=== PATIENT | female | born 1965 | race Caucasian/White ===

== ENCOUNTER 2020-01-08 11:58 | Inpatient (IN) ==
[2020-01-08] MEDS ORDERED: SODIUM CHLORIDE 0.9% 1,000 ML IV STA (13:08)
[2020-01-08] MEDS ORDERED: DEXAMETHASONE 4 MG/1 ML VIAL IV STA (13:54)
[2020-01-08] MEDS ORDERED: FAMOTIDINE 20 MG/2 ML VIAL IV STA (13:58)
[2020-01-08] MEDS ORDERED: CETIRIZINE 10 MG TABLET PO STA (13:59)
[2020-01-08 14:01] LABS: Basophils % 0.3 % (0.0-0.8); Eosinophils % 0.1 % (0.00-10.9); Hemoglobin 12.7 GM/DL (12.0-16.0); Immature Granulocytes % 1.1 %; Immature Granulocytes Absolute 0.08 #; Lymphocytes % 14.7 % (21.3-54.2); Mean Corpuscular HGB Conc 34.3 GM/DL (32-36); Mean Corpuscular Volume 90.7 FL (87-102); Mean Platelet Volume 10.1 FL (9.6-12.0); Neutrophils % 79.8 % (38.7-73.9); Platelet Count 249 T/CUMM (130-400); Red Blood Count 4.08 MC/CUMM (3.8-5.5); Red Cell Distribution Width 14.1 % (9.3-17.3)
[2020-01-08 14:26] LABS: Albumin 2.8 G/DL (3.4-5.0); Bilirubin,Total 0.5 MG/DL (0.2-1.0); Ferritin 464.1 ng/ml (8-252); Total Protein 6.8 G/DL (6.4-8.3)
[2020-01-08] MEDS ORDERED: POTASSIUM CHLORIDE 20 MEQ TABLET PO STA (15:00)
[2020-01-08] MEDS ORDERED: PIPERACILLIN/TAZOBACTAM 3,375 MG in SODIUM CHLORIDE 0.9% 100 ML IV STA (15:03)
[2020-01-08] MEDS ORDERED: DEXTROSE 50% 25 GM/50 ML VIAL IV PRN ×2 (15:14)
[2020-01-08] MEDS ORDERED: ONDANSETRON 4 MG/2 ML VIAL IV STA (15:14)
[2020-01-08] MEDS ORDERED: GLUCAGON 1 MG VIAL IM PRN ×2 (15:14)
[2020-01-08] MEDS ORDERED: AZITHROMYCIN 500 MG PO SCH (15:30)
[2020-01-08 15:50] LABS: Band Neutrophils 1 % (0-10); Hypochromasia 2+; Lymphocytes 14 % (20-55); Platelet Estimate Decreased; Reactive Lymphocytes 1+; Segmented Neutrophils 82 % (50-85); Total Cells Counted 100
[2020-01-08 15:51] LABS: Anisocytosis 1+; Polychromasia 1+
[2020-01-08] MEDS ORDERED: INSULIN LISPRO 100 UNIT/ML SUBCUT SCH (16:30)
[2020-01-08] MEDS ORDERED: ALBUTEROL 2.5 MG/3 ML NEB RESP TX PRN (17:04)
[2020-01-08] MEDS ORDERED: ALBUTEROL SULFATE INH PRN (17:04)
[2020-01-08] MEDS: CHOLECALCIFEROL 5,000 UNIT TABLET PO SCH (18:43)
[2020-01-08] MEDS: ZINC GLUCONATE 50 MG TABLET PO SCH (18:43)
[2020-01-08] MEDS: ALBUTEROL INHALER 18 GM INH SCH ×2 (19:00→23:59)
[2020-01-08] MEDS ORDERED: POTASSIUM CHLORIDE 20 MEQ TABLET PO ONE (20:00)
[2020-01-08] MEDS: ONDANSETRON 4 MG/2 ML VIAL IV PRN (20:30)
[2020-01-08] MEDS: FAMOTIDINE 20 MG/2 ML VIAL IV SCH (20:33)
[2020-01-08] MEDS: clonazePAM 0.5 MG TABLET PO SCH (20:37)
[2020-01-08] MEDS: GABAPENTIN 300 MG CAPSULE PO SCH (20:37)
[2020-01-08] MEDS: NON-FORMULARY MEDICATION (Dextroamphetamine-Amphetamine 30 MG) PO SCH (20:37)
[2020-01-08] MEDS: ENOXAPARIN 40 MG/0.4 ML SYRINGE SUBCUT SCH (20:38)
[2020-01-08] MEDS ORDERED: CLORAZEPATE DIPOTASSIUM 15 MG PO SCH (21:00)
[2020-01-09 03:07] LABS: Basophils % 0.2 % (0.0-0.8); Hemoglobin 11.8 GM/DL (12.0-16.0); Immature Granulocytes % 1.1 %; Immature Granulocytes Absolute 0.05 #; Lymphocytes % 20.8 % (21.3-54.2); Mean Corpuscular HGB Conc 34.7 GM/DL (32-36); Mean Corpuscular Volume 90.4 FL (87-102); Mean Platelet Volume 10.2 FL (9.6-12.0); Monocytes % 6.1 % (1.7-12.7); Neutrophils % 71.8 % (38.7-73.9); Platelet Count 242 T/CUMM (130-400); Red Blood Count 3.76 MC/CUMM (3.8-5.5); Red Cell Distribution Width 14.2 % (9.3-17.3); White Blood Count 4.8 T/CUMM (4-12)
[2020-01-09 03:28] LABS: Albumin 2.5 G/DL (3.4-5.0); Bilirubin,Total 0.4 MG/DL (0.2-1.0); Calcium 7.2 MG/DL (8.5-10.1); Osmolality,Calculated 276.7 MOS/KG (273-304); Total Protein 6.3 G/DL (6.4-8.3)
[2020-01-09 04:22] LABS: Anisocytosis 1+; Platelet Estimate Normal
[2020-01-09] MEDS: ALBUTEROL INHALER 18 GM INH SCH ×3 (06:33→20:44)
[2020-01-09] MEDS: ONDANSETRON 4 MG/2 ML VIAL IV PRN (07:25)
[2020-01-09] MEDS: ZINC GLUCONATE 50 MG TABLET PO SCH ×2 (09:20→16:00)
[2020-01-09] MEDS: clonazePAM 0.5 MG TABLET PO SCH ×2 (09:20→20:34)
[2020-01-09] MEDS: CHOLECALCIFEROL 5,000 UNIT TABLET PO SCH (09:20)
[2020-01-09] MEDS: FOLIC ACID 1 MG TABLET PO SCH (09:20)
[2020-01-09] MEDS: ARIPiprazole 2 MG TABLET PO SCH (09:20)
[2020-01-09] MEDS: TAMSULOSIN 0.4 MG CAPSULE PO SCH (09:20)
[2020-01-09] MEDS: LEVOTHYROXINE 200 MCG TABLET PO SCH (09:20)
[2020-01-09] MEDS: FLUoxetine 20 MG CAPSULE PO SCH (09:20)
[2020-01-09] MEDS: DEXAMETHASONE 10 MG/1 ML VIAL IV SCH (09:20)
[2020-01-09] MEDS: CETIRIZINE 10 MG TABLET PO SCH (09:20)
[2020-01-09] MEDS: GABAPENTIN 300 MG CAPSULE PO SCH ×3 (09:20→20:34)
[2020-01-09] MEDS: FAMOTIDINE 20 MG/2 ML VIAL IV SCH ×2 (09:24→20:34)
[2020-01-09] MEDS: NON-FORMULARY MEDICATION (Dextroamphetamine-Amphetamine 30 MG) PO SCH ×2 (09:43→20:33)
[2020-01-09] MEDS: OLMESARTAN 20 MG TABLET PO SCH (09:47)
[2020-01-09] MEDS: NEBIVOLOL 5 MG TABLET PO SCH (09:48)
[2020-01-09] MEDS: amLODIPine 10 MG TABLET PO SCH (09:48)
[2020-01-09] MEDS: ENOXAPARIN 40 MG/0.4 ML SYRINGE SUBCUT SCH (20:33)
[2020-01-10] MEDS: ALBUTEROL INHALER 18 GM INH SCH ×4 (00:17→18:39)
[2020-01-10 05:46] LABS: Ferritin 306.2 ng/ml (8-252)
[2020-01-10] MEDS: GABAPENTIN 300 MG CAPSULE PO SCH ×3 (08:44→20:18)
[2020-01-10] MEDS: ARIPiprazole 2 MG TABLET PO SCH (08:44)
[2020-01-10] MEDS: ZINC GLUCONATE 50 MG TABLET PO SCH ×2 (08:44→16:25)
[2020-01-10] MEDS: OLMESARTAN 20 MG TABLET PO SCH (08:45)
[2020-01-10] MEDS: amLODIPine 10 MG TABLET PO SCH (08:45)
[2020-01-10] MEDS: clonazePAM 0.5 MG TABLET PO SCH ×2 (08:45→20:18)
[2020-01-10] MEDS: NEBIVOLOL 5 MG TABLET PO SCH (08:45)
[2020-01-10] MEDS: CETIRIZINE 10 MG TABLET PO SCH (08:46)
[2020-01-10] MEDS: TAMSULOSIN 0.4 MG CAPSULE PO SCH (08:46)
[2020-01-10] MEDS: FLUoxetine 20 MG CAPSULE PO SCH (08:47)
[2020-01-10] MEDS: CHOLECALCIFEROL 5,000 UNIT TABLET PO SCH (08:47)
[2020-01-10] MEDS: DEXAMETHASONE 10 MG/1 ML VIAL IV SCH (08:48)
[2020-01-10] MEDS: FAMOTIDINE 20 MG/2 ML VIAL IV SCH ×2 (08:50→20:19)
[2020-01-10] MEDS: NON-FORMULARY MEDICATION (Dextroamphetamine-Amphetamine 30 MG) PO SCH ×2 (08:51→20:17)
[2020-01-10] MEDS: FOLIC ACID 1 MG TABLET PO SCH (08:56)
[2020-01-10] MEDS: LEVOTHYROXINE 200 MCG TABLET PO SCH (08:56)
[2020-01-10] MEDS: ONDANSETRON 4 MG/2 ML VIAL IV PRN (08:57)
[2020-01-10] MEDS: ACETAMINOPHEN 325 MG TABLET PO PRN (16:38)
[2020-01-10] MEDS: ENOXAPARIN 40 MG/0.4 ML SYRINGE SUBCUT SCH (20:18)
[2020-01-11] MEDS: ALBUTEROL INHALER 18 GM INH SCH ×4 (01:10→18:50)
[2020-01-11] MEDS: ONDANSETRON 4 MG/2 ML VIAL IV PRN (07:00)
[2020-01-11 07:46] LABS: Ferritin 270.7 ng/ml (8-252)
[2020-01-11 07:47] LABS: Calcium 7.6 MG/DL (8.5-10.1); Osmolality,Calculated 278.4 MOS/KG (273-304)
[2020-01-11] MEDS: ZINC GLUCONATE 50 MG TABLET PO SCH ×2 (08:54→17:04)
[2020-01-11] MEDS: OLMESARTAN 20 MG TABLET PO SCH (08:55)
[2020-01-11] MEDS: ARIPiprazole 2 MG TABLET PO SCH (08:55)
[2020-01-11] MEDS: GABAPENTIN 300 MG CAPSULE PO SCH ×3 (08:55→21:19)
[2020-01-11] MEDS: FLUoxetine 20 MG CAPSULE PO SCH (08:55)
[2020-01-11] MEDS: CETIRIZINE 10 MG TABLET PO SCH (08:55)
[2020-01-11] MEDS: TAMSULOSIN 0.4 MG CAPSULE PO SCH (08:56)
[2020-01-11] MEDS: clonazePAM 0.5 MG TABLET PO SCH ×2 (08:56→21:19)
[2020-01-11] MEDS: amLODIPine 10 MG TABLET PO SCH (08:56)
[2020-01-11] MEDS: NEBIVOLOL 5 MG TABLET PO SCH (08:56)
[2020-01-11] MEDS: FOLIC ACID 1 MG TABLET PO SCH (08:56)
[2020-01-11] MEDS: LEVOTHYROXINE 200 MCG TABLET PO SCH (08:56)
[2020-01-11] MEDS: CHOLECALCIFEROL 5,000 UNIT TABLET PO SCH (08:56)
[2020-01-11] MEDS: FAMOTIDINE 20 MG/2 ML VIAL IV SCH ×2 (08:57→21:13)
[2020-01-11] MEDS: DEXAMETHASONE 10 MG/1 ML VIAL IV SCH (08:58)
[2020-01-11] MEDS: NON-FORMULARY MEDICATION (Dextroamphetamine-Amphetamine 30 MG) PO SCH ×2 (09:53→21:09)
[2020-01-11] MEDS: ACETAMINOPHEN 325 MG TABLET PO PRN (18:32)
[2020-01-11] MEDS: ENOXAPARIN 40 MG/0.4 ML SYRINGE SUBCUT SCH (21:27)
[2020-01-12] MEDS: ALBUTEROL INHALER 18 GM INH SCH ×3 (00:58→13:25)
[2020-01-12] MEDS: ZINC GLUCONATE 50 MG TABLET PO SCH (08:52)
[2020-01-12] MEDS: OLMESARTAN 20 MG TABLET PO SCH (08:52)
[2020-01-12] MEDS: clonazePAM 0.5 MG TABLET PO SCH (08:53)
[2020-01-12] MEDS: FOLIC ACID 1 MG TABLET PO SCH (08:53)
[2020-01-12] MEDS: ARIPiprazole 2 MG TABLET PO SCH (08:53)
[2020-01-12] MEDS: TAMSULOSIN 0.4 MG CAPSULE PO SCH (08:53)
[2020-01-12] MEDS: CHOLECALCIFEROL 5,000 UNIT TABLET PO SCH (08:53)
[2020-01-12] MEDS: LEVOTHYROXINE 200 MCG TABLET PO SCH (08:53)
[2020-01-12] MEDS: CETIRIZINE 10 MG TABLET PO SCH (08:54)
[2020-01-12] MEDS: NEBIVOLOL 5 MG TABLET PO SCH (08:54)
[2020-01-12] MEDS: amLODIPine 10 MG TABLET PO SCH (08:54)
[2020-01-12] MEDS: GABAPENTIN 300 MG CAPSULE PO SCH (08:54)
[2020-01-12] MEDS: FAMOTIDINE 20 MG/2 ML VIAL IV SCH (08:55)
[2020-01-12] MEDS: DEXAMETHASONE 10 MG/1 ML VIAL IV SCH (08:55)
[2020-01-12] MEDS: NON-FORMULARY MEDICATION (Dextroamphetamine-Amphetamine 30 MG) PO SCH (08:56)
[2020-01-12] MEDS: FLUoxetine 20 MG CAPSULE PO SCH (08:59)
[2020-01-12 12:59] VITALS: BP 122/64
== END 2020-01-12 13:30 | disposition home or self-care (01) | DRG 177 ==
LOC: N.ED 11:58 → N.EDINP 15:14 → SUATTDRO 15:14 → N.EDINP 17:08 → N.2E 17:23
PROVIDERS: ADMIT Family Medicine; ATTEND Emergency Medicine